=== PATIENT | male | born 1955 | race Caucasian/White ===

== ENCOUNTER 2023-08-15 07:53 | Emergency (ER) | payer OTHER ==
[~2023-08-15] VITALS: Ht 172.7 cm; Wt 81.6 kg
[2023-08-15 07:53] VITALS: BP 171/89; TEMP 97.8; O2SAT 95
== END 2023-08-15 09:33 | disposition left against medical advice (07) ==
LOC: ER 07:53
DX: R06.02 Shortness of breath (principal); J44.9 Chronic obstructive pulmonary disease, unspecified; Z53.21 Procedure and treatment not carried out due to patient leaving prior to being seen by health care provider